=== PATIENT | female | born 2000 ===

== ENCOUNTER 2025-01-20 09:15 | Emergency (ER) | payer SELFPAY ==
[~2025-01-20] VITALS: Ht 170.2 cm; Wt 83.9 kg
[2025-01-20 09:18] VITALS: BP 129/66; TEMP 99.1; O2SAT 98
== END 2025-01-20 10:03 | disposition left against medical advice (07) ==
LOC: M ED 09:15
DX: Z53.21 Procedure and treatment not carried out due to patient leaving prior to being seen by health care provider (principal)